=== PATIENT | male | born 1980 | race Native Hawaiian/Other Pacific Islander ===

== ENCOUNTER 2016-12-02 22:31 | Emergency (ER) | payer OTHER ==
[2016-12-03 01:50] LABS: Basophils % (Auto) 0.6 % (0.0-1.8); Eosinophils % (Auto) 2.5 % (0.0-4.3); Hematocrit 48.7 % (35.5-45.6); Hemoglobin 16.8 gm/dl (11.8-15.2); Mean Corpuscular HGB Conc 34 % (32-34); Mean Corpuscular Hemoglobin 31 pg (28-32); Mean Corpuscular Volume 90 fl (84-94); Platelet Count 234 K/mm3 (140-440); Red Blood Count 5.39 M/mm3 (3.65-5.03); White Blood Count 6.8 K/mm3 (4.5-11.0)
[2016-12-03 02:02] LABS: Blood Urea Nitrogen 14 mg/dL (9-20); Calcium 9.3 mg/dL (8.4-10.2); Carbon Dioxide 27 mmol/L (22-30); Chloride 99.3 mmol/L (98-107); Glucose 97 mg/dL (75-100); Potassium 4.1 mmol/L (3.6-5.0); Sodium 139 mmol/L (137-145)
[2016-12-03 02:06] LABS: Anion Gap 17 mmol/L
--- NOTE | 2016-12-03 03:51 | Cat Scan Report ---
FINAL REPORT PROCEDURE: CT HEAD/BRAIN WO CON TECHNIQUE: Computerized tomography of the head was performed without contrast material. HISTORY: fall, ams, blurred vision COMPARISON: No prior studies are available for comparison. FINDINGS: Skull and scalp: Normal. Paranasal sinuses: Normal. Ventricles and subarachnoid spaces: Normal. Cerebrum: No evidence of hemorrhage, acute infarction or mass . Cerebellum and brainstem: No evidence of hemorrhage, acute infarction or mass. Vasculature: Normal. Comments: None. IMPRESSION: There is no evidence of an acute intracranial process.
[2016-12-03 08:35] VITALS: BP 140/91
[2016-12-03] MEDS ORDERED: NORCO 5/325 PO ONE (11:58)
--- NOTE | 2016-12-03 12:05 | Emergency Department Report ---
HPI - General Chief Complaint: Dizziness Time Seen by Provider: 12/03/16 11:40 - HPI HPI: Room 7 The patient is a 35-year-old male presenting with a chief complaint of headache after fall. The patient states 2 days ago he accidentally slipped and fell striking his head on a hard object. Patient states he never lost consciousness. Patient denies nausea or vomiting. The patient states the headache is been intermittent. The patient currently gives his pain a score of 9/10. Location: Head Duration: Intermittent 2 days Quality: Pressure Severity: 9/10 Modifying factors: Unknown Context: [see above] Mode of transportation: [not driving] ED Past Medical Hx - Past Medical History Previous Medical History?: No - Surgical History Past Surgical History?: Yes Additional Surgical History: RIGHT FOOT - Family History Family history: no significant - Social History Smoking Status: Never Smoker Substance Use Type: None (denies illicit drug use) - Medications Home Medications: Home Medications Medication Instructions Recorded Confirmed Last Taken Type Butalb/Acetamin/Caff 50-325-40 2 tab PO Q8HR PRN #20 tablet 12/03/16 Unknown Rx [Fioricet] ED Review of Systems ROS: Stated complaint: HEAD INJURY Other details as noted in HPI Comment: All other systems reviewed and negative Constitutional: denies: chills, fever Eyes: denies: eye pain, eye discharge, vision change ENT: denies: ear pain, throat pain Respiratory: denies: cough, shortness of breath, wheezing Cardiovascular: denies: chest pain, palpitations Endocrine: no symptoms reported Gastrointestinal: denies: nausea, diarrhea Genitourinary: denies: urgency, dysuria Musculoskeletal: denies: back pain, joint swelling, arthralgia Skin: denies: rash, lesions Neurological: headache Psychiatric: denies: anxiety, depression Hematological/Lymphatic: denies: easy bleeding, easy bruising Physical Exam - Physical Exam Vital Signs: Vital Signs 12/02/16 12/03/16 22:40 08:21 Temperature 98.7 F 97.6 F Pulse Rate 60 71 Respiratory 18 20 Rate Blood Pressure 140/91 Blood Pressure 128/89 [Right] O2 Sat by Pulse 100 100 Oximetry Physical Exam: GENERAL: The patient is well-developed well-nourished male lying on stretcher not appearing to be in acute distress. [] HEENT: Normocephalic. Atraumatic. Extraocular motions are intact. Patient has moist mucous membranes. No nystagmus NECK: Supple. Trachea midline CHEST/LUNGS: Clear to auscultation. There is no respiratory distress noted. HEART/CARDIOVASCULAR: Regular. There is no tachycardia. There is no gallop rub or murmur. ABDOMEN: Abdomen is soft, nontender. Patient has normal bowel sounds. There is no abdominal distention. SKIN: There is no rash. There is no edema. There is no diaphoresis. NEURO: The patient is awake, alert, and oriented. The patient is cooperative. The patient has no focal neurologic deficits. The patient has normal speech. Cranial nerves II through XII grossly intact, no drift MUSCULOSKELETAL: There is no evidence of acute injury. ED Course Vital Signs 12/02/16 12/03/16 22:40 08:21 Temperature 98.7 F 97.6 F Pulse Rate 60 71 Respiratory 18 20 Rate Blood Pressure 140/91 Blood Pressure 128/89 [Right] O2 Sat by Pulse 100 100 Oximetry ED Medical Decision Making - Lab Data Result diagrams: 12/03/16 01:24 12/03/16 01:24 Laboratory Tests 12/03/16 12/03/16 01:24 01:24 WBC 6.8 RBC 5.39 H Hgb 16.8 H Hct 48.7 H MCV 90 MCH 31 MCHC 34 RDW 13.0 L Plt Count 234 Lymph % (Auto) 34.8 Lea % (Auto) 11.7 H Eos % (Auto) 2.5 Baso % (Auto) 0.6 Lymph # 2.4 Lea # 0.8 Eos # 0.2 Baso # 0.0 Seg Neutrophils % 50.4 Seg Neutrophils # 3.4 Sodium 139 Potassium 4.1 Chloride 99.3 Carbon Dioxide 27 Anion Gap 17 BUN 14 Creatinine 0.7 L Estimated GFR > 60 BUN/Creatinine Ratio 20.00 Glucose 97 Calcium 9.3 - Radiology Data Radiology results: report reviewed (CT head), image reviewed (CT head) CT head (read by radiologist)-no acute findings - Differential Diagnosis closed head injury, ICH, postconcussive syndrome Critical care attestation.: If time is entered above; I have spent that time in minutes in the direct care of this critically ill patient, excluding procedure time. ED Disposition Clinical Impression: Postconcussive syndrome, Closed head injury Disposition: DISCHARGED TO HOME OR SELFCARE Is pt being admited?: No Does the pt Need Aspirin: No Condition: Stable Instructions: Post Concussion Syndrome (ED) Additional Instructions: Return to the emergency department immediately should you develop worsening symptoms, fever, inability to tolerate food or liquid or any other concerns. Prescriptions: Butalb/Acetamin/Caff 50-325-40 [Fioricet] 2 tab PO Q8HR PRN #20 tablet PRN Reason: Headache Referrals: PRIMARY CARE, [Primary Care Provider] - 3-5 Days ANTHONY BRIGGS MD [Staff Physician] - 3-5 Days (Dr. Briggs is a neurologist. Please follow up with him for further evaluation) Time of Disposition: 12:08
== END 2016-12-03 12:30 | disposition home or self-care (01) ==
LOC: ED 22:31
DX: S09.90XA Unspecified injury of head, initial encounter (principal); F07.81 Postconcussional syndrome; W19.XXXA Unspecified fall, initial encounter; Y93.89 Activity, other specified; Y99.9 Unspecified external cause status; Y92.89 Other specified places as the place of occurrence of the external cause
CPT/HCPCS: 36415; 70450; 80048; 85025